=== PATIENT | female | born 1990 | race Caucasian/White ===

== ENCOUNTER 2020-01-31 17:39 | Emergency (ER) | payer SELFPAY ==
[2020-01-31 17:46] VITALS: BP 120/76; PULSE 94; RESP 18; TEMP 36.8; O2SAT 96; BMI 28.3
--- NOTE | 2020-01-31 18:04 | W.ED.SKABFB ---
HPI - Skin/Abscess/Foreign Bdy General: Chief complaint: Skin/Abscess/Foreign Body Stated complaint: rash Time Seen by Provider: 01/31/20 17:49 History of Present Illness: HPI narrative: Rash that itches on arms and legs neck patient says it occurs every year during the summer complaint: rash Onset (ago): day(s) Tetanus up to date: yes Location: generalized Severity: moderate Associated symptoms: Deny chills, fever(s), nausea or vomiting Review of Systems Const: Denies: fever(s), chills or body aches Eyes: Denies: change in vision or blurry vision ENMT: Denies: throat pain or nasal congestion Card: Denies: chest pain or dyspnea on exertion Resp: Denies: dyspnea, productive cough or non-productive cough GI: Denies: abdominal pain, nausea or vomiting Musc: Denies: extremity pain Skin/Breast: Reports: rash, pruritus and erythema Neuro: Denies: headache(s) Psych: Denies: anxiety or depression Ray/Lymph: Denies: easy bruising PFSH ED PFSH: Social History Smoking and tobacco status: never smoked Physical Exam Const: COMMON NORMALS: no acute distress, average body habitus and patient oriented x3 HENMT: COMMON NORMALS: normocephalic HEAD & SCALP: normal to inspection and normocephalic FACE & SINUS: normal facial exam Eye: COMMON NORMALS: conjunctivae normal GENERAL EYE: appearance normal, both eyes and all related structures CONJUNCTIVA: Yes conjunctivae normal Neck/C-Spine: COMMON NORMALS: no JVD Chest: COMMONS NORMALS: normal inspection of the chest Resp: COMMON NORMALS: normal respiratory effort and clear to auscultation bilaterally AUSCULTATION: clear to auscultation bilaterally Cardio: COMMON NORMALS: no JVD, regular rate and regular rhythm RATE: regular rate RHYTHM: regular rhythm GI: COMMON NORMALS: Normal to inspection, nondistended, normoactive bowel sounds present Extremity: COMMON NORMALS: normal to inspection and full ROM Neuro: COMMON NORMALS: patient oriented x3 Skin: NARRATIVE SKIN EXAM: Maculopapular rash extending up her arms from the back of the hands slight on the back of the legs does have little bit on her neck little redness to her face Course Vital Signs: Vital signs: Vital Signs Temperature 98.3 F 01/31/20 17:46 Pulse Rate 94 01/31/20 17:46 Respiratory Rate 18 01/31/20 17:46 Blood Pressure 120/76 01/31/20 17:46 Pulse Oximetry 96 01/31/20 17:46 Discharge Plan Discharge Patient Disposition: Home, Self-Care Clinical Impression: Contact dermatitis Qualifiers: Contact dermatitis type: allergic Contact dermatitis trigger: other trigger Qualified Code(s): L23.89 - Allergic contact dermatitis due to other agents Condition: Stable Prescriptions: New Medrol ([place]) 4 mg tablets,dose pack See Rx Instructions .ROUTE .COMPLEX Qty: 21 RF: 0 hydroxyzine HCl 25 mg tablet 25 mg PO Q8H PRN (Reason: itching) Qty: 10 RF: 0 Discharge Orders: Discharge Order (Routine); Ordered 01/31/20 Ordered By: James Martinez Referrals: Paulette Delgado FNP [Primary Care Provider] - Discharge Diet: Usual diet Discharge Activity: Resume usual activity Patient Instructions: Contact Dermatitis (ED) Activity Restrictions/Additional Instructions: Follow-up with medical provider as directed. Take medications as prescribed. Return to the ER or your medical provider if condition worsens. Please read and understand discharge instructions. If any questions ask please. Follow-up with primary for allergy testing Coding Level of Care Code ED Golf Cart Maker for Elijah Garcia
[2020-01-31] MEDS: methylPREDNISolone (DEPO) 40 mg/mL INJ 1 mL IM (18:22)
[2020-01-31 18:24] VITALS: BP 144/101; PULSE 93; RESP 14; O2SAT 96
== END 2020-01-31 18:25 | disposition home or self-care (01) ==
PROVIDERS: Emergency Provider Nurse Practitioner Family; PCP Registered Nurse
DX: L23.89 Allergic contact dermatitis due to other agents (principal)
CPT/HCPCS: 12345; 96372; 99281; 99283; J1030

== ENCOUNTER 2020-03-18 22:59 | Emergency (ER) | payer SELFPAY ==
[2020-03-18 23:04] VITALS: BP 139/92; PULSE 86; RESP 18; TEMP 37; O2SAT 97; BMI 26.4
--- NOTE | 2020-03-18 23:15 | W.ED.ALLEREA ---
HPI - Allergic Reaction General: Chief complaint: Allergic Reaction Stated complaint: POSSIBLE ALLERGIC REACTION Time Seen by Provider: 03/18/20 23:15 Source: patient Mode of arrival: ambulatory Limitations: no limitations History of Present Illness: HPI narrative: Patient comes in with feeling of malaise, nausea and vomiting, and gastric distress. Patient states that she was eating pork and had an episode of nausea and vomiting with gastric distress. Patient states that she has tested positive for alpha gal which has made her hypersensitive to beef. She reports never having an episode with pork but believes she may have had one tonight. Patient appears mildly unwell. Patient appears in no pain. No obvious hives or oral mucosal swelling is noted at this time. Associated symptoms: Reports nausea and vomiting Review of Systems General: Reports: 10 or more systems reviewed and unremarkable except in HPI and below GI: Reports: nausea, vomiting and diarrhea PFSH ED PFSH: Social History Smoking and tobacco status: never smoked Physical Exam Const: COMMON NORMALS: no acute distress and patient oriented x3 GENERAL APPEARANCE: cooperative HENMT: COMMON NORMALS: normocephalic and Normal external nose present HEAD & SCALP: normal to inspection and normocephalic NOSE: Normal external nose present MOUTH: Normal oral and palatal mucosa present THROAT: posterior oropharynx normal Eye: GENERAL EYE: appearance normal, both eyes and all related structures Neck/C-Spine: COMMON NORMALS: full ROM Lymph: LYMPHATIC: no lymphadenopathy noted Chest: COMMONS NORMALS: normal inspection of the chest Resp: COMMON NORMALS: normal respiratory effort EFFORT & INSPECTION: Yes able to speak in complete sentences Cardio: COMMON NORMALS: regular rate and regular rhythm RATE: regular rate RHYTHM: regular rhythm GI: COMMON NORMALS: non-tender Back/Pelvis: COMMON NORMALS: thoracic and lumbar spine normal to inspection Extremity: COMMON NORMALS: normal to inspection Neuro: COMMON NORMALS: patient oriented x3 and moves all extremities Psych: COMMON NORMALS: mental status grossly normal and cooperative Skin: COMMON NORMALS: no rashes or lesions noted GENERAL SKIN EXAM: no rashes or lesions noted Course Vital Signs: Vital signs: Vital Signs Temperature 98.6 F 03/18/20 23:04 Pulse Rate 70 03/18/20 23:32 Respiratory Rate 16 03/18/20 23:32 Blood Pressure 130/93 03/18/20 23:32 Pulse Oximetry 98 03/18/20 23:32 MDM - Allergic Reaction MDM Narrative: Medical decision making narrative: Medical decision statement. Patient comes in today for complaints of adverse reaction to pork ingestion. Patient has alpha gal syndrome and developed allergens to beef, she usually is able to eat pork without difficulty but tonight she had some pork and had a adverse reaction to it. Patient reported nausea vomiting and diarrhea. Vital signs are normal. No obvious rash or airway compromise is noted. Differential diagnosis includes foodborne illness, allergic reaction, malingering. Patient was given Benadryl and monitored in the ER showing no deterioration of condition. Patient was recommended to continue Benadryl for the next 2 to 3 days and to follow-up as needed. Patient reported understanding agreed to plan. Discharge Plan Discharge Patient Disposition: Home, Self-Care Clinical Impression: Allergic reaction Qualifiers: Encounter type: initial encounter Qualified Code(s): T78.40XA - Allergy, unspecified, initial encounter Condition: Stable Prescriptions: Discontinued methylprednisolone [Medrol ([place])] 4 mg tablets,dose pack See Rx Instructions .ROUTE .COMPLEX Qty: 21 RF: 0 No Action hydroxyzine HCl 25 mg tablet 25 mg PO Q8H PRN (Reason: itching) Qty: 10 RF: 0 Discharge Orders: Discharge Order (Routine); Ordered 03/18/20 Ordered By: Sam Hodges Referrals: Paulette Delgado FNP [Primary Care Provider] - Discharge Diet: Usual diet Discharge Activity: Increase activity as tolerated Activity Restrictions/Additional Instructions: Avoid contact with any red meat, this includes beef, pork, and other hooved animals. Continue with Benadryl 25 mg p.o. every 4-6 hours as needed for symptoms. Drink plenty of water. Follow-up with primary care for further treatment. Coding Level of Care Code ED Field Marketing Team Leader for Cortneyg Fwd Exam Comprehensive
[2020-03-18 23:32] VITALS: BP 130/93; PULSE 70; RESP 16; O2SAT 98
[2020-03-18] MEDS: diphenhydrAMINE 50 mg Capsule PO (23:55)
[2020-03-19 00:42] VITALS: BP 122/74; PULSE 80; RESP 18; TEMP 36.7; O2SAT 100
== END 2020-03-19 02:47 | disposition home or self-care (01) ==
PROVIDERS: Emergency Provider Nurse Practitioner Family; PCP Registered Nurse
DX: T78.40XA Allergy, unspecified, initial encounter (principal)
CPT/HCPCS: 12345; 99283; Q0163

== ENCOUNTER 2020-07-04 13:44 | Emergency (ER) | payer SELFPAY ==
[2020-07-04 13:50] VITALS: BP 121/70; PULSE 88; RESP 18; TEMP 36.8; O2SAT 97; BMI 25.0
--- NOTE | 2020-07-04 14:10 | CT_ITS ---
WS: [id number] CT HEAD TECHNIQUE: Noncontrast CT of the head obtained from the skullbase to the vertex. CLINICAL INFORMATION: chowdary COMPARISON: CT May 29, 2011 DLP: 682.[address] scans at [facility] use at least one of these dose optimization techniques: automat ed exposure control; mA and/or kV adjustment per patient size (includes targeted exams where dose is matched to clinical indication); or iterative reconstruction. FINDINGS: No evidence of intracranial hemorrhage or mass effect. Ventricular system and basal cisterns are neves nt. No extra-axial fluid collections. No evidence of mass or mass effect. Normal lucia-white different iation. Paranasal sinuses and mastoid air cells are well aerated. .Normal visualized soft tissues. CT/CT head wo con* 19383 IMPRESSION: 1. No evidence of intracranial hemorrhage or mass effect. 2. Normal lucia-white differentiation. 3. No acute intracranial findings. Attempted notification Lloyd Catalan MD at 07/04/2020 3:37 PM.
--- NOTE | 2020-07-04 15:09 | ED_ITS ---
HPI - Head Injury General: Chief complaint: Head Injury Stated complaint: r eye pain/ trampoline Time Seen by Provider: 07/04/20 14:39 History of Present Illness: HPI Narrative: Patient is a 29-year-old female who presents to the emergency room due to laceration above right brow. Patient states that she was utilizing a drill putting a trampoline together when it slipped and hit her in the head. Patient states that she had a headache and dizziness after she was struck. This occurred just prior to arrival to the emergency room approximately 3 hours ago. Patient denies any vomiting, loss of consciousness, seizure-like activity, disorientation or any other concerning symptoms. Review of Systems General: Reports: 10 or more systems reviewed and unremarkable except in HPI and below Skin/Breast: Reports: other (Laceration) Neuro: Reports: headache(s); Denies: numbness in extremities, weakness in extremities, sensory changes or lack of coordination PFSH ED PFSH: Social History Smoking and tobacco status: never smoked Physical Exam Narrative: EXAM NARRATIVE: Patient is well-appearing nontoxic sitting comfortably speaking with spouse without difficulty smiling upon examination and history. Patient presents due to head injury and laceration. Laceration is just superior to right brow and superficial in nature. There is no evidence of contamination or debris. Patient is neurologically intact. Patient is moving all 4 extremities without difficulty. Patient does not have any cervical vertebral point tenderness. Patient gait is steady. Patient GCS is 15 and has been since injury. Const: COMMON NORMALS: no acute distress, average body habitus, patient oriented x3 and no limitations EXAM LIMITATIONS: no altered mental status GENERAL APPEARANCE: cooperative, comfortable and well kempt HENMT: COMMON NORMALS: normocephalic, hearing grossly normal bilaterally and Normal nasal mucous membranes and turbinates present HEAD & SCALP: normocephalic and scalp lesion (Laceration noted to superior right brow.) HEAD IMAGES: 1. Superficial 1.5 cm laceration well approximated. There is no underlying hematoma, evidence of bony step-off or deformity, no evidence of basilar skull signs or any other red flag symptoms. FACE & SINUS: normal facial exam NOSE: Normal nasal mucous membranes and turbinates present MOUTH: Normal oral and palatal mucosa present Eye: COMMON NORMALS: Equal, round and reactive pupils present, EOMs intact bilaterally and conjunctivae normal GENERAL EYE: appearance normal, both eyes and all related structures VISUAL ACUITY: Yes acuity normal ALIGNMENT: Yes alignment normal PERIORBITAL: periorbital findings normal EYELID: eyelids normal CONJUNCTIVA: Yes conjunctivae normal PUPIL: Yes Equal, round and reactive pupils present Neck/C-Spine: COMMON NORMALS: full ROM, supple and Thyroid normal GENERAL: Yes normal visual inspection THYROID: Thyroid normal CERVICAL SPINE: Yes cervical ROM normal, No pain with cervical ROM and No step off deformity Chest: COMMONS NORMALS: normal inspection of the chest Resp: COMMON NORMALS: normal respiratory effort EFFORT & INSPECTION: Yes symmetric chest movement Cardio: COMMON NORMALS: regular rate and regular rhythm RATE: regular rate RHYTHM: regular rhythm GI: COMMON NORMALS: Normal to inspection, nondistended, normoactive bowel sounds present INSPECTION: Yes normal to inspection PALPATION: No Tenderness to palpation present (GI) Back/Pelvis: THORACIC SPINE/UPPER BACK: Yes normal to inspection and Yes thoracic ROM normal LUMBAR SPINE/LOWER BACK: Yes normal to inspection and Yes lumbar ROM normal Extremity: COMMON NORMALS: normal to inspection, full ROM and capillary refill normal Neuro: DU[place]AS COMA SCALE: document GCS findings [place] coma scale eye opening: Spontaneous [place] coma scale verbal response: Orientated [place] coma scale motor response: Obey commands [place] coma scale total score: 15 COMMON NORMALS: patient oriented x3 Psych: APPEARANCE: Yes well kempt Skin: TRAUMA: laceration linear (Superior to right brow), superficial and sensation intact; does not involve subcutaneous tissue and does not involve muscle tissue Procedures Laceration Laceration 1: Site: face Side (If applicable): right Size (cm): 1.5 Description: linear Depth: simple, single layer Amount of anesthesia used (mL): 0 (Utilized Dermabond to approximate wound and Steri-Strips.) Pre-repair: wound explored Course Vital Signs: Vital signs: Vital Signs Temperature 98.2 F 07/04/20 13:50 Pulse Rate 88 07/04/20 13:50 Respiratory Rate 18 07/04/20 13:50 Blood Pressure 121/70 07/04/20 13:50 Pulse Oximetry 97 07/04/20 13:50 MDM - Head Injury MDM Narrative: Medical decision making narrative: Patient head CT is negative with no acute intracranial pathology noted. I cleansed patient laceration site with Betadine and saline. Wound was explored in a bloodless field there was no evidence of bony involvement there is no evidence of foreign body. Patient wound approximated well with Steri-Strips and Dermabond. And patient tolerated procedure well. Differential Diagnosis: Differential diagnosis head injury: Likely concussion without loss of consciousness, closed head injury and subdural hematoma Imaging Data^: CT Head: My impression: No acute intracranial pathology noted. Discharge Plan Discharge Prescriptions: No Action hydroxyzine HCl 25 mg tablet 25 mg PO Q8H PRN (Reason: itching) Qty: 10 RF: 0 Coding Level of Care Code ED Undercover Agent for Chg Jose
[2020-07-04 15:31] VITALS: BP 115/75; PULSE 69; RESP 14; O2SAT 98
== END 2020-07-04 15:49 | disposition home or self-care (01) ==
PROVIDERS: Emergency Provider Nurse Practitioner Family; PCP Registered Nurse
DX: S01.111A Laceration without foreign body of right eyelid and periocular area, initial encounter (principal); W22.8XXA Striking against or struck by other objects, initial encounter
CPT/HCPCS: 12011; 12345; 70450; 99281; 99283

== ENCOUNTER 2020-11-28 18:54 | Emergency (ER) | payer SELFPAY ==
[2020-11-28 19:16] VITALS: BP 135/87; PULSE 68; RESP 18; TEMP 36.9; O2SAT 99; BMI 25.7
[2020-11-28 20:28] LABS: Basophils # 0.1 10^3/uL (0.0-0.1); Basophils % 0.3 %; Eosinophils # 0.1 10^3/uL (0.0-0.8); Eosinophils % 0.3 %; Hematocrit 38.9 % (37.0-47.0); Lymphocytes # 1.1 10^3/uL (0.8-4.8); Lymphocytes % 7.7 %; Mean Corpuscular HGB Conc 33.4 g/dL (30.0-36.0); Mean Corpuscular Hemoglobin 29.6 pg (28.0-34.0); Mean Corpuscular Volume 88.6 fL (81-99); Mean Platelet Volume 10.6 fL (7.4-10.4); Monocytes # 0.7 10^3/uL (0.2-0.9); Monocytes % 4.6 %; Neutrophils # 12.71 10^3/uL (1.8-7.7); Neutrophils % 86.9 %; Nucleated Red Blood Cells % 0 %; Platelet Count 253 10^3/cmm (130-400); Red Blood Count 4.39 10^6/uL (4.1-5.3); Red Cell Distribution Width 13.1 % (12.1-15.1); White Blood Count 14.7 10^3/uL (4.0-10.0)
[2020-11-28 20:47] LABS: Alanine Aminotransferase 11 U/L (0-33); Albumin Level 4.7 g/dL (3.5-5.2); Alkaline Phosphatase 88 IU/L (35-105); Anion Gap 12.9 (5-19); Aspartate Amino Transferase 14 U/L (0-32); Blood Urea Nitrogen 8 mg/dL (6-20); Carbon Dioxide 26 mmol/L (22-29); Chloride 101 mmol/L (98-107); Globulin 2.8 g/dL (1.3-4.6); Glucose 105 mg/dL (65-115); Lipase 24 U/L (13-60); Osmolality Calculated 281 mOsm/kg (285-295); Potassium 3.9 mmol/L (3.5-5.1); Sodium 136 mmol/L (136-145); Total Bilirubin 0.3 mg/dL (0.15-1.2); Total Protein 7.5 g/dL (6.6-8.7)
[2020-11-28 22:52] LABS: HCG Qualitative Urine. Negative (Negative)
== END 2020-11-29 00:23 | disposition left against medical advice (07) ==
LOC: ER 19:02
PROVIDERS: Emergency Medicine; Emergency Provider Family Medicine; PCP Registered Nurse
DX: Z53.21 Procedure and treatment not carried out due to patient leaving prior to being seen by health care provider (principal)
CPT/HCPCS: 36415; 80053; 81025; 83690; 85025

== ENCOUNTER 2021-03-20 07:48 | Emergency (ER) | payer MEDICAID, SELFPAY ==
[2021-03-20 07:59] VITALS: BP 115/77; PULSE 69; RESP 18; TEMP 37; O2SAT 100; BMI 22.4
[2021-03-20 08:07] VITALS: RESP 15
--- NOTE | 2021-03-20 08:42 | ED_ITS ---
HPI - URI/Sore Throat General: Chief Complaint: General Medical Stated Complaint: Left Lymph Node Swelling Time Seen by Provider: 03/20/21 07:50 Source: patient Mode of arrival: ambulatory Limitations: no limitations History of Present Illness: HPI Narrative: Patient is a 30-year-old female who presents to ED today with complaints of sinus pressure, nasal congestion/rhinorrhea, sore throat that she attributes to postnasal drainage, loss of smell (reports no loss of taste), and swelling to the left side of her neck. Symptoms of been present over the past 1 to 2 days. She attributed symptoms to allergies however became concerned with the neck swelling. She is eating and drinking normally. No trouble breathing or swallowing. No fevers. She is unvaccinated for COVID. MD elicited complaint: cough, sore throat, nasal congestion, sinus pain and other (L neck swelling) Onset (ago): day(s) Consistency: constant Severity: mild Description of mucous: clear and watery Able to tolerate fluids by mouth: Yes Exacerbating factors: swallowing Relieving factors: nothing Associated symptoms: Reports nasal congestion and sinus pain; Deny abdominal pain, chills, chest pain, diarrhea, ear or mastoid pain, fever(s), headache(s), nausea or vomiting Treatments prior to arrival: none Review of Systems Const: Denies: fever(s), chills, body aches, change in appetite, change in weight, fatigue or malaise Eyes: Denies: change in vision or blurry vision ENMT: Reports: throat pain, odynophagia, nasal discharge, nasal congestion, post nasal drip and sinus pain; Denies: uvular edema, enlarged tonsils, hoarseness, swelling of lips/tongue, oral sores, ear or mastoid pain, ear discharge or change in hearing Card: Denies: chest pain Resp: Reports: non-productive cough; Denies: dyspnea or chest congestion GI: Denies: abdominal pain, nausea, vomiting or diarrhea Musc: Denies: neck pain, back pain, extremity pain or joint pain Skin/Breast: Denies: rash Neuro: Denies: headache(s), numbness in extremities, weakness in extremities or sensory changes PFSH ED PFSH: Social History Smoking and tobacco status: never smoked Female Reproductive History: Date of last menstrual period: 10/31/20 Physical Exam Const: COMMON NORMALS: no acute distress, average body habitus, patient oriented x3, no limitations, healthy appearing, alert and well nourished GENERAL APPEARANCE: cooperative ORIENTATION/CONSCIOUSNESS: Yes awake, Yes oriented to person, Yes oriented to place and Yes oriented to time HENMT: COMMON NORMALS: normocephalic, atraumatic, hearing grossly normal bilaterally, external ears normal, EAC's normal, TM's normal bilaterally, Normal external nose present, Normal nasal mucous membranes and turbinates present, oropharynx normal and gingiva normal HEAD & SCALP: normal to inspection, normocephalic and atraumatic FACE & SINUS: sinus tenderness frontal, ethmoid and maxillary NOSE: Normal external nose present, Normal nares present and Normal nasal mucous membranes and turbinates present EXTERNAL EAR: Yes external ears normal and Yes mastoids normal EXTERNAL AUDITORY CANAL: EAC's normal TYMPANIC MEMBRANE: TM's normal bilaterally MOUTH: Normal oral and palatal mucosa present, lip normal and tongue normal THROAT: posterior oropharynx normal, tonsils normal and uvula midline; no uvular edema Eye: COMMON NORMALS: Equal, round and reactive pupils present, EOMs intact bilaterally and conjunctivae normal GENERAL EYE: appearance normal, both eyes and all related structures CONJUNCTIVA: Yes conjunctivae normal PUPIL: Yes Equal, round and reactive pupils present Neck/C-Spine: COMMON NORMALS: full ROM, no meningeal signs and Thyroid normal GENERAL: Yes lymphadenopathy (left ) Lymphadenopathy location: submandibular and anterior cervical THYROID: Thyroid normal Resp: COMMON NORMALS: normal respiratory effort and clear to auscultation bilaterally AUSCULTATION: clear to auscultation bilaterally Cardio: COMMON NORMALS: regular rate and regular rhythm RATE: regular rate RHYTHM: regular rhythm Extremity: COMMON NORMALS: normal to inspection Neuro: COMMON NORMALS: patient oriented x3 SENSORIUM/ORIENTATION: Yes alert, Yes oriented to person, Yes oriented to place and Yes oriented to time MENINGEAL SIGNS: Yes no meningeal signs Skin: COMMON NORMALS: no rashes or lesions noted GENERAL SKIN EXAM: no rashes or lesions noted TRAUMA: no lacerations or abrasions Course Vital Signs: Vital signs: Vital Signs Temperature 98.6 F 03/20/21 07:59 Pulse Rate 69 03/20/21 07:59 Respiratory Rate 15 03/20/21 08:07 Blood Pressure 115/77 03/20/21 07:59 Pulse Oximetry 100 03/20/21 07:59 MDM - URI/Sore Throat MDM Narrative: Medical decision making narrative: Will place on abx for unilateral lymphadenopathy. Rapid antigen COVID negative. Will do Cephalexin suspension secondary to her alpha gal allergy. Return to ED precautions given. Lab Data: Labs: Lab Results 03/20/21 Range/Units 08:51 SARS-CoV-2 Ag (Rap id) Negative (Negative) Discharge Plan Discharge Patient Disposition: Home Clinical Impression: Lymphadenopathy of left cervical region Sinusitis Qualifiers: Sinusitis location: ethmoidal Chronicity: acute Recurrence: non-recurrent Qualified Code(s): J01.20 - Acute ethmoidal sinusitis, unspecified Condition: Stable Prescriptions: New cephalexin 250 mg/5 mL suspension for reconstitution 500 mg PO TID 7 Days Qty: 210 RF: 0 No Action ibuprofen 800 mg tablet 800 mg PO Q8H PRN (Reason: pain) Qty: 10 RF: 0 Discharge Orders: Discharge ED (Routine); Ordered 03/20/21 Ordered By: Carleen Chang Referrals: Paulette Delgado FNP [Primary Care Provider] - Activity Restrictions/Additional Instructions: As we discussed please follow-up with your primary care provider in 3 to 4 days if symptoms are not improving. You need to return to the emergency department immediately for any trouble swallowing, difficulty breathing, inability to control your saliva/drooling, or any other concerns you may have. Coding Level of Care Code ED Mold Maker Plastic Molds for Elijah Fwd Exam Comprehensive
[2021-03-20 09:48] LABS: SARS Covid-2 Antigen Negative (Negative)
[2021-03-20 12:22] VITALS: BP 154/93; PULSE 75; RESP 18; TEMP 36.9; O2SAT 100
== END 2021-03-20 12:23 | disposition home or self-care (01) ==
PROVIDERS: Emergency Provider Physician Assistant; PCP Registered Nurse
DX: J01.20 Acute ethmoidal sinusitis, unspecified (principal); R59.1 Generalized enlarged lymph nodes; Z20.822 Contact with and (suspected) exposure to COVID-19
CPT/HCPCS: 87426; 99281

== ENCOUNTER 2021-07-06 19:07 | Emergency (ER) | payer MEDICAID, SELFPAY ==
[2021-07-06 19:27] VITALS: BP 157/93; PULSE 75; RESP 18; TEMP 37.2; O2SAT 100; BMI 24.1
--- NOTE | 2021-07-06 19:33 | XRR_ITS ---
PROCEDURE INFORMATION: Exam: XR Left Foot Exam date and time: 07/06/2021 7:33 PM Age: 30 years old Clinical indication: Injury or trauma; Fall; Blunt trauma; Foot; Left TECHNIQUE: Imaging protocol: XR Left foot. Views: 3 or more views. COMPARISON: No relevant prior studies available. FINDINGS: Bones/joints: No fracture or dislocation is seen. A tiny dorsal calcaneal spur is present. Soft tissues: Normal. XR/XR foot LT min 3V* [id number] IMPRESSION: No fracture or dislocation. Radiation Dose CTDIVOL = (mGy): DLP = (mGy-cm)
[2021-07-06 20:00] VITALS: PULSE 87
--- NOTE | 2021-07-06 21:03 | ED_ITS ---
HPI - Extremity Problem General: Chief complaint: Extremity Injury, Lower Stated complaint: L Foot Injury\ SOB Time Seen by Provider: 07/06/21 20:30 History of Present Illness: HPI Narrative: 30-year-old female comes in today with complaints of injury to the left foot. Patient was carrying her son when she tripped and fell injuring her left foot. Patient appears well. Patient appears no acute distress. Patient reports pain to the foot. Review of Systems General: Reports: 10 or more systems reviewed and unremarkable except in HPI and below Musc: Reports: other (Left foot injury) PFSH ED PFSH: Social History Smoking and tobacco status: never smoked Female Reproductive History: Date of last menstrual period: 06/14/21 Physical Exam Const: COMMON NORMALS: no acute distress and patient oriented x3 GENERAL APPEARANCE: cooperative HENMT: COMMON NORMALS: normocephalic and Normal external nose present HEAD & SCALP: normal to inspection and normocephalic NOSE: Normal external nose present Eye: GENERAL EYE: appearance normal, both eyes and all related structures Neck/C-Spine: COMMON NORMALS: full ROM Chest: COMMONS NORMALS: normal inspection of the chest Resp: COMMON NORMALS: normal respiratory effort EFFORT & INSPECTION: Yes able to speak in complete sentences Cardio: COMMON NORMALS: regular rate and regular rhythm RATE: regular rate RHYTHM: regular rhythm GI: COMMON NORMALS: non-tender Extremity: NARRATIVE EXTREMITY EXAM: Tenderness to the lateral left foot. No obvious fractures noted. Still swelling. Pulses intact. Neuro: COMMON NORMALS: patient oriented x3 and moves all extremities Psych: COMMON NORMALS: mental status grossly normal and cooperative Skin: COMMON NORMALS: no rashes or lesions noted GENERAL SKIN EXAM: no rashes or lesions noted Course Vital Signs: Vital signs: Vital Signs Temperature 98.9 F 07/06/21 19:27 Pulse Rate 75 07/06/21 19:27 Respiratory Rate 18 07/06/21 19:27 Blood Pressure 157/93 07/06/21 19:27 Pulse Oximetry 100 07/06/21 19:27 MDM - Extremity (Nontraumatic) MDM Narrative: Medical decision making narrative: Patient came in for evaluation of injury to the left foot. On exam there is no obvious injury or significant swelling or ecchymosis. Vital signs are normal. Differential diagnosis includes fracture, sprain, contusion. X-ray was negative for any fra cture. Reviewed exam with patient recommended treatment with ice and elevation and Gaurav wrap. Patient was concerned about medications due to her alpha gal allergy. Review of the history noted patient been prescribed 800 mg ibuprofen. I renewed this prescription for her. Patient otherwise was given nonpharmacological ideals for treatment. Patient reported understanding. Discharge Plan Discharge Patient Disposition: Home Clinical Impression: Foot sprain Qualifiers: Encounter type: initial encounter Laterality: left Qualified Code(s): S93.602A - Unspecified sprain of left foot, initial encounter Condition: Stable Prescriptions: Continued ibuprofen 800 mg tablet 800 mg PO Q8H PRN (Reason: pain) Qty: 10 RF: 0 Discharge Orders: Discharge ED (Routine); Ordered 07/06/21 Ordered By: Sam Hodges Referrals: Paulette Delgado FNP [Primary Care Provider] - Discharge Diet: Usual diet Discharge Activity: Increase activity as tolerated Patient Instructions: Foot Sprain (ED), Opioid Safety Activity Restrictions/Additional Instructions: Use crutches until he can bear weight comfortably on foot. Use Gaurav wrap to help with swelling and comfort. Use ice for further pain relief. Use ibuprofen for severe pain. Follow-up with primary care for further instruction. Return to the ER for new concerns. Coding Level of Care Code ED Peer Financial Counselor for Elijah Garcia
[2021-07-06 21:30] VITALS: BP 147/91; PULSE 87; RESP 18; O2SAT 97
== END 2021-07-06 21:12 | disposition home or self-care (01) ==
PROVIDERS: Emergency Provider Nurse Practitioner Family; PCP Registered Nurse
DX: S93.602A Unspecified sprain of left foot, initial encounter (principal); W01.0XXA Fall on same level from slipping, tripping and stumbling without subsequent striking against object, initial encounter; Y93.F9 Activity, other caregiving
CPT/HCPCS: 73630; 99283; E0114

== ENCOUNTER 2022-01-04 09:39 | Emergency (ER) | payer MEDICAID, SELFPAY ==
[2022-01-04 09:52] VITALS: BP 112/76; PULSE 90; RESP 18; TEMP 36.6; O2SAT 100; BMI 21.6
--- NOTE | 2022-01-04 10:52 | ED_ITS ---
Documented by User: ADELSO Ross 01/04/22 13:38 HPI - Female Genitourinary General: Chief complaint: Urogenital-Female Stated complaint: abdominal pain/difficulty urinating/back pain Time Seen by Provider: 01/04/22 09:56 Source: patient Mode of arrival: wheelchair Limitations: no limitations History of Present Illness: Patient is a 31-year-old female presents to ED tod ay with a complaint of left-sided flank pain as well as dysuria, frequency, and urgency. Patient states approximately 3 years ago she had a pyelonephritis infection that felt similar. She states yesterday but she began noticing some dysuria later that evening began developing some flank pains and feeling nauseous. He has not had any episodes of emesis. Bowel movements have been normal. No fevers. She has not noticed any hematuria. MD elicited complaint: dysuria, flank pain and other (urinary frequency, urgency) Onset (ago): day(s) (yesterday) Location of symptoms: flank Severity: moderate Quality of pain: dull and aching Consistency: constant Vaginal discharge: none Vaginal bleeding: none Urinary symptoms: Dysuria, Flank Pain and Frequency Relieving factors: none Associated symptoms: Reports nausea; Deny abdominal pain, headache(s) or vaginal discharge Treatment prior to arrival: none Sexual activity: Yes Patient : No Date of Last Menstrual Period: 06/14/21 Review of Systems Const: Denies: fever(s), chills, body aches, fatigue or malaise Card: Denies: chest pain Resp: Denies: dyspnea GI: Reports: nausea; Denies: abdominal pain, vomiting, diarrhea or change in bowel habits : Reports: flank pain, dysuria, urinary frequency and urinary urgency; Denies: oliguria, urinary incontinence, hematuria, vaginal bleeding, vaginal discharge or pelvic pain Musc: Reports: back pain (L flank); Denies: neck pain, extremity pain, joint pain or joint swelling Skin/Breast: Denies: rash Neuro: Denies: headache(s), numbness in extremities, weakness in extremities, sensory changes or dizziness PFS ED PFSH: Social History Smoking and tobacco status: never smoked Female Reproductive History: Date of last menstrual period: 06/14/21 Physical Exam Const: COMMON NORMALS: no limitations, healthy appearing, alert and well nourished GENERAL APPEARANCE: cooperative and in distress (appears slightly uncomfortable secondary to pain) ORIENTATION/CONSCIOUSNESS: Yes awake, Yes oriented to person, Yes oriented to place and Yes oriented to time HENMT: COMMON NORMALS: normocephalic and atraumatic HEAD & SCALP: normocephalic and atraumatic Chest: COMMONS NORMALS: normal inspection of the chest and normal palpation of entire chest wall Resp: COMMON NORMALS: normal respiratory effort and clear to auscultation bilaterally AUSCULTATION: clear to auscultation bilaterally Cardio: COMMON NORMALS: regular rate and regular rhythm RATE: regular rate RHYTHM: regular rhythm GI: COMMON NORMALS: Normal to inspection, nondistended, normoactive bowel sounds present, Soft to palpation, non-tender, No hepatosplenomegaly present and no masses INSPECTION: Yes normal to inspection AUSCULTATION: Yes normoactive bowel sounds PALPATION: Yes Soft to palpation and Yes No hepatosplenomegaly present : BLADDER/KIDNEY EXAM: Yes CVA tenderness on the left Back/Pelvis: COMMON NORMALS: thoracic and lumbar spine normal to inspection a nd no thoracic nor lumbar tenderness GENERAL BACK: Yes CVA tenderness Extremity: COMMON NORMALS: normal to inspection Neuro: RICH COMA SCALE: document GCS findings [place] coma scale eye opening: Spontaneous Rich coma scale verbal response: Orientated [place] coma scale motor response: Obey commands Rich coma scale total score: 15 COMMON NORMALS: moves all extremities, no focal motor deficits and no sensory deficits noted SENSORIUM/ORIENTATION: Yes alert, Yes oriented to person, Yes oriented to place and Yes oriented to time Skin: COMMON NORMALS: no rashes or lesions noted GENERAL SKIN EXAM: no rashes or lesions noted Course Vital Signs: Vital signs: Vital Signs Temperature 97.9 F 01/04/22 12:46 Pulse Rate 90 01/04/22 12:46 Respiratory Rate 18 01/04/22 12:46 Blood Pressure 112/76 01/04/22 12:46 Pulse Oximetry 100 01/04/22 12:46 [facility] - Female Medical Decision Making Patient's history and physical exam is consistent with a left-sided pyelonephritis. She is not tachycardic or febrile. White count is 15.5. UA showing 3+ blood, 1+ leuks, 25-40 WBCs and 1+ bacteria. We will culture this. Patient has not had any vomiting and is able to hold down oral antibiotics at home. She is not clinically ill or toxic appearing. US of her kidneys are normal. She was given IV Rocephin and will be placed on Ciprofloxacin. We will also write for nausea meds and a small amount of pain medications. Strict return to ED precautions verbally discussed with patient. Lab Data : 01/04/22 10:50 01/04/22 10:50 Radiology Impressions Renal Ultrasound 01/04/22 11:48 IMPRESSION: Normal renal ultrasound. Laboratory Results WBC 15.5 10^3/uL (4.0-10.0) H 01/04/22 10:50 RBC 4.21 10^6/uL (4.1-5.3) 01/04/22 10:50 Hgb 12.1 g/dL (11.5-15.3) 01/04/22 10:50 Hct 37.0 % (37.0-47.0) 01/04/22 10:50 MCV 87.9 fl (81-99) 01/04/22 10:50 MCH 28.7 pg (28.0-34.0) 01/04/22 10:50 MCHC 32.7 g/dL (30.0-36.0) 01/04/22 10:50 RDW 14.3 % (12.1-15.1) 01/04/22 10:50 Plt Count 312 10^3/cmm (130-400) 01/04/22 10:50 MPV 10.9 fL (7.4-10.4) H 01/04/22 10:50 Neut % (Auto) 85.9 % 01/04/22 10:50 Lymph % (Auto) 6.7 % 01/04/22 10:50 Leon % (Auto) 6.0 % 01/04/22 10:50 Eos % (Auto) 0.5 % 01/04/22 10:50 Baso % (Auto) 0.5 % 01/04/22 10:50 Neut # (Auto) 13.27 10^3/uL (1.8-7.7) H 01/04/22 10:50 Lymph # (Auto) 1.0 10^3/uL (0.8-4.8) 01/04/22 10:50 Leon # (Auto) 0.9 10^3/uL (0.2-0.9) 01/04/22 10:50 Eos # (Auto) 0.1 10^3/uL (0.0-0.8) 01/04/22 10:50 Baso # (Auto) 0.1 10^3/uL (0.0-0.1) 01/04/22 10:50 Nucleated RBC % (auto) 0 % 01/04/22 10:50 Nucleated RBCs # 0.0 /100WBC 01/04/22 10:50 Sodium 136 mmol/L (136-145) 01/04/22 10:50 Potassium 4.2 mmol/L (3.5-5.1) 01/04/22 10:50 Chloride 100 mmol/L (98-107) 01/04/22 10:50 Carbon Dioxide 26 mmol/L (22-29) 01/04/22 10:50 Anion Gap 14.2 (5-19) 01/04/22 10:50 BUN 10 mg/dL (6-20) 01/04/22 10:50 Creatinine 0.8 mg/dL (0.5-0.9) 01/04/22 10:50 GFR Calculation 82.6 mL/min (90-130) L 01/04/22 10:50 Glucose 75 mg/dL (65-115) 01/04/22 10:50 Calculated Osmolality 280 mOsm/kg (285-295) L 01/04/22 10:50 Calcium 9.8 mg/dL (8.5-10.5) 01/04/22 10:50 Total Bilirubin 0.2 mg/dL (0.15-1.2) 01/04/22 10:50 AST 15 U/L (0-32) 01/04/22 10:50 ALT 12 U/L (0-33) 01/04/22 10:50 Alkaline Phosphatase 120 IU/L (35-105) H 01/04/22 10:50 Total Protein 7.5 g/dL (6.6-8.7) 01/04/22 10:50 Albumin 4.9 g/dL (3.5-5.2) 01/04/22 10:50 Globulin 2.6 g/dL (1.3-4.6) 01/04/22 10:50 Lipase 28 U/L (13-60) 01/04/22 10:50 HCG, Qual Negative (Negative) 01/04/22 10:50 Urine Color Straw (Yellow) 01/04/22 10:50 Urine Appearance Sl hazy (CLEAR) 01/04/22 10:50 Urine pH 6.5 (5-7) 01/04/22 10:50 Ur Specific [place] 1.010 (1.005-1.030) 01/04/22 10:50 Urine Protein Neg (Negative) 01/04/22 10:50 Urine Glucose (UA) Norm (Normal) 01/04/22 10:50 Urine Ketones Negative (Negative) 01/04/22 10:50 Urine Blood 3+ (Negative) H 01/04/22 10:50 Urine Nitrate Negative (Negative) 01/04/22 10:50 Urine Bilirubin Neg (Negative) 01/04/22 10:50 Urine Urobilinogen Norm mg/dL (Negative) 01/04/22 10:50 Ur Leukocyte Esterase 1+ (Negative) H 01/04/22 10:50 Urine RBC 10-15 /hpf (0-2) H 01/04/22 10:50 Urine WBC 25-40 /hpf (0-5) H 01/04/22 10:50 Ur Squamous Epith Cells 0-4 /hpf (0-5) H 01/04/22 10:50 Amorphous Sediment Not Reportable 01/04/22 10:50 Urine Bacteria 1+ /hpf (NONE) H 01/04/22 10:50 Discharge Plan Discharge Patient Disposition: Home Clinical Impression: Pyelonephritis of left kidney Condition: Stable Prescriptions: New hydrocodone-acetaminophen 5-325 mg tablet 1 tab PO Q6H PRN (Reason: pain) Qty: 7 0RF Cipro 500 mg tablet 500 mg PO Q12H Qty: 14 0RF ondansetron 4 mg tablet,disintegrating 4 mg PO Q8H PRN (Reason: nausea and vomiting) Qty: 14 0RF No Action ibuprofen 800 mg tablet 800 mg PO Q8H PRN (Reason: pain) Qty: 10 0RF Discharge Orders: Discharge ED (Routine); Ordered 01/04/22 Ordered By: Carleen Chang Referrals: Paulette Delgado FNP [Primary Care Provider] - Patient Instructions: Pyelonephritis Coding Level of Care Code ED Commissioning Specialist for Chg Fwd Exam Comprehensive Documented by User: Jluis Culver DO 01/04/22 14:57 HPI - Female Genitourinary General: Chief complaint: Urogenital-Female Stated complaint: abdominal pain/difficulty urinating/back pain Time Seen by Provider: 01/04/22 09:56 PFSH ED PFSH: Social History Smoking and tobacco status: never smoked Physical Exam Neuro: RICH COMA SCALE: document GCS findings Rich coma scale total score: 15 Course Vital Signs: Vital signs: Vital Signs Temperature 97.9 F 01/04/22 12:46 Pulse Rate 90 01/04/22 12:46 Respiratory Rate 18 01/04/22 12:46 Blood Pressure 112/76 01/04/22 12:46 Pulse Oximetry 100 01/04/22 12:46 MDM - Female Medical Decision Making Patient's history and physical exam is consistent with a left-sided pyelonephritis. She is not tachycardic or febrile. White count is 15.5. UA showing 3+ blood, 1+ leuks, 25-40 WBCs and 1+ bacteria. We will culture this. Patient has not had any vomiting and is able to hold down oral antibiotics at home. She is not clinically ill or toxic appearing. US of her kidneys are normal. She was given IV Rocephin and will be placed on Ciprofloxacin. We will also write for nausea meds and a small amount of pain medications. Strict return to ED precautions verbally discussed with patient. Chart reviewed and patient discussed with midlevel. Agree with assessment and plan. Lab Data : 01/04/22 10:50 01/04/22 10:50 Radiology Impressions Renal Ultrasound 01/04/22 11:48
[2022-01-04 11:07] LABS: Basophils # 0.1 10^3/uL (0.0-0.1); Basophils % 0.5 %; Eosinophils # 0.1 10^3/uL (0.0-0.8); Eosinophils % 0.5 %; Hemoglobin 12.1 g/dL (11.5-15.3); Lymphocytes % 6.7 %; Mean Corpuscular HGB Conc 32.7 g/dL (30.0-36.0); Mean Corpuscular Hemoglobin 28.7 pg (28.0-34.0); Mean Corpuscular Volume 87.9 fl (81-99); Mean Platelet Volume 10.9 fL (7.4-10.4); Monocytes # 0.9 10^3/uL (0.2-0.9); Neutrophils # 13.27 10^3/uL (1.8-7.7); Neutrophils % 85.9 %; Nucleated Red Blood Cells % 0 %; Platelet Count 312 10^3/cmm (130-400); Red Blood Count 4.21 10^6/uL (4.1-5.3); Red Cell Distribution Width 14.3 % (12.1-15.1); White Blood Count 15.5 10^3/uL (4.0-10.0)
[2022-01-04 11:28] LABS: Alanine Aminotransferase 12 U/L (0-33); Albumin Level 4.9 g/dL (3.5-5.2); Alkaline Phosphatase 120 IU/L (35-105); Anion Gap 14.2 (5-19); Aspartate Amino Transferase 15 U/L (0-32); Blood Urea Nitrogen 10 mg/dL (6-20); Calcium 9.8 mg/dL (8.5-10.5); Carbon Dioxide 26 mmol/L (22-29); Chloride 100 mmol/L (98-107); Globulin 2.6 g/dL (1.3-4.6); Glomerular Filtration Rate 82.6 mL/min (90-130); Glucose 75 mg/dL (65-115); HCG, Serum Qual Negative (Negative); Lipase 28 U/L (13-60); Osmolality Calculated 280 mOsm/kg (285-295); Potassium 4.2 mmol/L (3.5-5.1); Sodium 136 mmol/L (136-145); Total Bilirubin 0.2 mg/dL (0.15-1.2); Total Protein 7.5 g/dL (6.6-8.7)
[2022-01-04 11:36] LABS: Urine Color Straw (Yellow)
[2022-01-04 11:41] LABS: Add Urine Microscopic? YES; Bilirubin Urine Neg (Negative); Blood Urine 3+ (Negative); Glucose Urine UA Norm (Normal); Ketones Urine Negative (Negative); Leukocyte Esterase Urine 1+ (Negative); Nitrate Urine Negative (Negative); Protein Urine Neg (Negative); Urine Appearance SL Hazy (CLEAR); Urobilinogen Urine Norm (Negative); pH Urine 6.5 (5-7)
[2022-01-04 11:43] LABS: Add Urine Culture? Yes; Bacteria Urine 1+ /hpf; Squamous Epithelial Cell Urine 0-4 /hpf (0-5); WBC Urine 25-40 /hpf (0-5)
--- NOTE | 2022-01-04 11:48 | US_ITS ---
WS: [id number] ULTRASOUND RENAL TECHNIQUE: Ultrasound examination of both kidneys. CLINICAL INFORMATION: L flank pain; pyelo COMPARISON: Ultrasound FINDINGS: RIGHT: Tiny nonobstructing RIGHT renal parenchymal calculi. Right kidney is normal in size and appearance. Echogenicity: Normal. Cortical thickness: 1.1 cm; Normal. Hydronephrosis: None. Perinephric fluid: None. Right kidney measures: 10.0 cm x 5.7 cm x 4.7 cm. LEFT: Left kidney is normal in size and appearance. Echogenicity: Normal. Cortical thickness: 1.7 cm; Normal. Hydronephrosis: None. Perinephric fluid: None. Left kidney measures: 9.3 cm x 4.3 cm x 4.9 cm. Normal visualized aorta. Normal bladder. US/US renal BI* [id number] IMPRESSION: Normal renal ultrasound.
[2022-01-04] MEDS: cefTRIAXone 1,000 MG in sodium chloride 0.9% (plus) 50 ML 100 MG IV (12:42)
[2022-01-04 12:46] VITALS: BP 112/76; PULSE 90; RESP 18; TEMP 36.6; O2SAT 100
[2022-01-04] MEDS: morphine 4 mg/mL SDV 1 mL IVP (13:16)
[2022-01-04] MEDS: ondansetron 2 mg/ML SDV 2 mL 4 MG IVP (13:17)
== END 2022-01-04 14:09 | disposition home or self-care (01) ==
PROVIDERS: Emergency Provider Physician Assistant; PCP Registered Nurse
DX: N12 Tubulo-interstitial nephritis, not specified as acute or chronic (principal); R11.0 Nausea
CPT/HCPCS: 76770; 80053; 81001; 83690; 84703; 85025; 87077; 87086; 87186; 96365; 96375; 99284; J0696; J2270; J2405

== ENCOUNTER 2022-08-30 12:19 | Emergency (ER) | payer MEDICAID, SELFPAY ==
--- NOTE | 2022-08-30 12:26 | ECG_ITS ---
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 Measurements Intervals [place] Rate: 86 P: 70 VT: 128 QRS: 79 QRSD: 76 T: 53 QT: 334 QTc: 402 Interpretive Statements SINUS RHYTHM No previous ECG available for comparison Electronically Signed On 08-30-2022 21:11:43 BEREAVEMENT COORDINATOR by Mari Levine M.D. [email or web address]
[2022-08-30 12:45] VITALS: BP 121/82; PULSE 92; RESP 16; TEMP 37.1; O2SAT 98; BMI 20.7
[2022-08-30 13:50] VITALS: BP 116/80; PULSE 86; RESP 16; O2SAT 98
--- NOTE | 2022-08-30 18:38 | XRR_ITS ---
PROCEDURE INFORMATION: Exam: XR Chest Exam date and time: 08/30/2022 6:43 PM Age: 31 years old Clinical indication: Angina; Additional info: Cp TECHNIQUE: Imaging protocol: Radiologic exam of the chest. Views: 1 view. COMPARISON: ES surgery / GI images 06/23/2019 1:00 PM FINDINGS: Lungs: Unremarkable. No consolidation. Pleural spaces: Unremarkable. No pleural effusion. No pneumothorax. Heart/Mediastinum: Unremarkable. No cardiomegaly. Bones/joints: Unremarkable. XR/XR chest 1V portable [id number] IMPRESSION: No acute findings.
--- NOTE | 2022-08-30 18:49 | ED_ITS ---
HPI - Chest Pain General: Chief Complaint: Chest Pain Stated Complaint: Chest Pain Time Seen by Provider: 08/30/22 18:38 History of Present Illness: Patient is a 31-year-old female comes to the ED with chest pain. Patient says her symptoms started at rest approximately 3 days ago. She describes the chest pain as an episodic sharp stabbing pain all throughout her chest. She rates that pain a 5 out of 10. She also endorses having pins and needle type pain all throughout her chest as well that she says is constant she rates that a 7 out of 10. Denies any shortness of breath. Patient also developed a hives type rash within the past couple hours and it is on her chest. She has a history of acute anxiety. Denies any worsening or improving factors. Denies any nausea/vomiting, abdominal pain, bladder or bowel symptoms. Associated symptoms: Deny abdominal pain, dyspnea, fever(s), nausea, palpitations or vomiting Review of Systems Const: Denies: fever(s), chills or fatigue Eyes: Denies: change in vision or eye discomfort ENMT: Denies: throat pain, odynophagia, nasal discharge or nasal congestion Card: Reports: chest pain; Denies: palpitations, edema, swelling of feet/ankles, dyspnea on exertion or orthopnea Resp: Denies: dyspnea, productive cough or non-productive cough GI: Denies: abdominal pain, nausea, vomiting, diarrhea, constipation or hematochezia : Denies: flank pain, dysuria or hematuria Musc: Denies: neck pain, back pain or extremity swelling Skin/Breast: Reports: rash; Denies: new lesions Neuro: Denies: headache(s), numbness in extremities or weakness in extremities PFSH ED PFSH: Medical History Anxiety Surgical History H/O tubal ligation Social History Smoking and tobacco status: never smoked Female Reproductive History: Date of last menstrual period: 06/14/21 Physical Exam Const: COMMON NORMALS: no acute distress, patient oriented x3, healthy appearing and alert GENERAL APPEARANCE: cooperative and comfortable HENMT: COMMON NORMALS: normocephalic HEAD & SCALP: normocephalic MOUTH: Normal oral and palatal mucosa present THROAT: posterior oropharynx normal and uvula midline Neck/C-Spine: COMMON NORMALS: supple GENERAL: Yes normal visual inspection Resp: COMMON NORMALS: normal respiratory effort, No retractions, No use of accessory muscles and clear to auscultation bilaterally AUSCULTATION: clear to auscultation bilaterally Cardio: COMMON NORMALS: regular rate, regular rhythm, S1 normal heart sound present, S2 normal heart sound present, No gallops present (Cardio), No clicks present (Cardio), No murmurs present (Cardio) and Peripheral pulses 2+ thro ughout RATE: regular rate RHYTHM: regular rhythm HEART SOUNDS: S1 normal heart sound present and S2 normal heart sound present PERIPHERAL PULSES: Peripheral pulses 2+ throughout GI: COMMON NORMALS: Normal to inspection, nondistended, normoactive bowel sounds present, Soft to palpation, non-tender and no masses PALPATION: Yes Soft to palpation : COMMON NORMALS: Yes no CVA tenderness BLADDER/KIDNEY EXAM: Yes no CVA tenderness Back/Pelvis: COMMON NORMALS: no CVA tenderness Extremity: COMMON NORMALS: normal to inspection Neuro: COMMON NORMALS: patient oriented x3 SENSORIUM/ORIENTATION: Yes alert GAIT: Yes Normal gait present Skin: NARRATIVE SKIN EXAM: Patient has hives type rash on chest. GENERAL SKIN EXAM: dry skin Course Vital Signs: Vital signs: Vital Signs Temperature 98.8 F 08/30/22 12:45 Pulse Rate 77 08/30/22 20:53 Respiratory Rate 16 08/30/22 20:53 Blood Pressure 118/90 08/30/22 20:53 Pulse Oximetry 100 08/30/22 20:53 MDM - Chest Pain Medical Decision Making Patient is a 31-year-old female comes to the ED with chest pain. Patient has a history of multiple allergies and alpha gal. Patient says her symptoms started at rest approximately 3 days ago. She describes the chest pain as an episodic sharp stabbing pain all throughout her chest. She rates that pain a 5 out of 10. She also endorses having pins and needle type pain all throughout her chest as well that she says is constant she rates that a 7 out of 10. Denies any shortness of breath. Patient also developed a hives type rash within the past couple hours and it is on her chest. She has a history of acute anxiety. Vital stable. Patient appears nontoxic and in no acute distress or pain. She does have urticarial rash on chest. The rest of exam is benign. CBC and CMP are unremarkable. Chest x-ray shows no acute findings. Troponins negative. EKG shows normal sinus rhythm with no ST segment elevation or depression seen and a rate of 73 bpm. Patient was given a dose of aspirin, Ativan and Solu-Medrol and Benadryl to help with rash. She was stable for discharge home and diagnosed with atypical chest pain and rash. She was stable for discharge home and sent home with a prescription for some prednisone and an EpiPen. Return to ED precautions given. Patient understood and agreed with plan. Lab Data I reviewed the patient's lab results. 08/30/22 19:09 08/30/22 19:09 Radiology Impressions Chest X-Ray 08/30/22 18:38 IMPRESSION: No acute findings. Laboratory Results WBC 4.5 10^3/uL (4.0-10.0) 08/30/22 19:09 RBC 4.23 10^6/uL (4.1-5.3) 08/30/22 19:09 Hgb 11.9 g/dL (11.5-15.3) 08/30/22 19:09 Hct 35.9 % (37.0-47.0) L 08/30/22 19:09 MCV 84.9 fl (81-99) 08/30/22 19:09 MCH 28.1 pg (28.0-34.0) 08/30/22 19:09 MCHC 33.1 g/dL (30.0-36.0) 08/30/22 19:09 RDW 13.7 % (12.1-15.1) 08/30/22 19:09 Plt Count 236 10^3/cmm (130-400) 08/30/22 19:09 MPV 10.7 fL (7.4-10.4) H 08/30/22 19:09 Neut % (Auto) 55.9 % 08/30/22 19:09 Lymph % (Auto) 30.0 % 08/30/22 19:09 [place] % (Auto) 12.8 % 08/30/22 19:09 Eos % (Auto) 0.7 % 08/30/22 19:09 Baso % (Auto) 0.4 % 08/30/22 19:09 Neut # (Auto) 2.49 10^3/uL (1.8-7.7) 08/30/22 19:09 Lymph # (Auto) 1.3 10^3/uL (0.8-4.8) 08/30/22 19:09 [place] # (Auto) 0.6 10^3/uL (0.2-0.9) 08/30/22 19:09 Eos # (Auto) 0.0 10^3/uL (0.0-0.8) 08/30/22 19:09 Baso # (Auto) 0.0 10^3/uL (0.0-0.1) 08/30/22 19:09 Nucleated RBC % (auto) 0 % 08/30/22 19:09 Nucleated RBCs # 0.0 /100WBC 08/30/22 19:09 Sodium 134 mmol/L (136-145) L 08/30/22 19:09 Potassium 3.5 mmol/L (3.5-5.1) 08/30/22 19:09 Chloride 100 mmol/L (98-107) 08/30/22 19:09 Carbon Dioxide 23 mmol/L (22-29) 08/30/22 19:09 Anion Gap 14.5 (5-19) 08/30/22 19:09 BUN 6 mg/dL (6-20) 08/30/22 19:09 Creatinine 0.8 mg/dL (0.5-0.9) 08/30/22 19:09 GFR Calculation 82.6 mL/min (90-130) L 08/30/22 19:09 Glucose 85 mg/dL (65-115) 08/30/22 19:09 Calculated Osmolality 275 mOsm/kg (285-295) L 08/30/22 19:09 Calcium 9.3 mg/dL (8.5-10.5) 08/30/22 19:09 Total Bilirubin 0.2 mg/dL (0.15-1.2) 08/30/22 19:09 AST 19 U/L (0-32) 08/30/22 19:09 ALT 10 U/L (0-33) 08/30/22 19:09 Alkaline Phosphatase 102 U/L (35-105) 08/30/22 19:09 Troponin T Gen 5 ng/L 6 ng/L (0-10) 08/30/22 19:09 Total Protein 7.6 g/dL (6.6-8.7) 08/30/22 19:09 Albumin 4.4 g/dL (3.5-5.2) 08/30/22 19:09 Globulin 3.2 g/dL (1.3-4.6) 08/30/22 19:09 HCG, Qual Negative (Negative) 08/30/22 19:09 EKG Data EKG 1: I personally reviewed and interpreted this EKG as follows: EKG interpretation date: 08/30/22 Interpretation: Normal sinus rhythm, 73 bpm, no ST segment elevation or depression seen. Discharge Plan Discharge Patient Disposition: Home Clinical Impression: Atypical chest pain, Rash Condition: Stable Prescriptions: New prednisone 20 mg tablet 20 mg PO BID 3 Days Qty: 6 0RF EpiPen 0.3 mg/0.3 mL auto-injector 0.3 mg IM Q20M PRN (Reason: anaphylaxis) Qty: 2 0RF Rx Instructions: for 3 doses No Action ibuprofen 800 mg tablet 800 mg PO Q8H PRN (Reason: pain) Qty: 10 0RF hydrocodone-acetaminophen 5-325 mg tablet 1 tab PO Q6H PRN (Reason: pain) Qty: 7 0RF Cipro 500 mg tablet 500 mg PO Q12H Qty: 14 0RF ondansetron 4 mg tablet,disintegrating 4 mg PO Q8H PRN (Reason: nausea and vomiting) Qty: 14 0RF Discharge Orders: Discharge ED (Routine); Ordered 08/30/22 Ordered By: Korey Clarke Referrals: Paulette Delgado FNP [Primary Care Provider] - Discharge Diet: Regular Discharge Activity: Increase activity as tolerated Patient Instructions: Chest Pain (ED), Urticaria (ED) Activity Restrictions/Additional Instructions: Follow-up with medical provider as directed in the next 7-10 days for reevaluation. Take medications as prescribed. Return to the ER or your medical provider if condition worsens. Please read and understand discharge instructions. Thank you for choosing [facility] for your healthcare needs today. Please realize this is an emergency room and that we are providing you with a medical screening exam and this may not be complete and all inclusive of all the testing and or work up that you may need to determine your ailment or severity of your illness. It is very important that you follow up as instructed or that you return to the Emergency Department should you have concerns or if your condition changes or worsens in any way. Coding Level of Care Code ED Organic Lab Worker for Elijah Fwd Exam Comprehensive
[2022-08-30] MEDS: aspirin 81 mg Chew Tablet 324 MG PO (19:03)
--- NOTE | 2022-08-30 19:08 | ECG_ITS ---
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 Measurements Intervals [place] Rate: 73 P: 14 SD: 139 QRS: 71 QRSD: 87 T: 58 QT: 366 QTc: 403 Interpretive Statements SINUS RHYTHM Compared to ECG 08/30/2022 12:34:45 No significant changes Electronically Signed On 08-30-2022 21:16:17 HISTOTECHNICIAN by Mari Levine M.D. [email or web address]
[2022-08-30 19:12] VITALS: BP 118/76; PULSE 76; RESP 16; O2SAT 100
[2022-08-30 19:17] LABS: Basophils % 0.4 %; Eosinophils % 0.7 %; Hematocrit 35.9 % (37.0-47.0); Hemoglobin 11.9 g/dL (11.5-15.3); Lymphocytes # 1.3 10^3/uL (0.8-4.8); Mean Corpuscular HGB Conc 33.1 g/dL (30.0-36.0); Mean Corpuscular Hemoglobin 28.1 pg (28.0-34.0); Mean Corpuscular Volume 84.9 fl (81-99); Mean Platelet Volume 10.7 fL (7.4-10.4); Monocytes # 0.6 10^3/uL (0.2-0.9); Monocytes % 12.8 %; Neutrophils # 2.49 10^3/uL (1.8-7.7); Neutrophils % 55.9 %; Nucleated Red Blood Cells % 0 %; Platelet Count 236 10^3/cmm (130-400); Red Blood Count 4.23 10^6/uL (4.1-5.3); Red Cell Distribution Width 13.7 % (12.1-15.1); White Blood Count 4.5 10^3/uL (4.0-10.0)
[2022-08-30 19:38] LABS: Troponin T (5th) Once 6 ng/L (0-10)
[2022-08-30 19:41] LABS: Alanine Aminotransferase 10 U/L (0-33); Albumin Level 4.4 g/dL (3.5-5.2); Alkaline Phosphatase 102 U/L (35-105); Anion Gap 14.5 (5-19); Aspartate Amino Transferase 19 U/L (0-32); Blood Urea Nitrogen 6 mg/dL (6-20); Calcium 9.3 mg/dL (8.5-10.5); Carbon Dioxide 23 mmol/L (22-29); Chloride 100 mmol/L (98-107); Globulin 3.2 g/dL (1.3-4.6); Glomerular Filtration Rate 82.6 mL/min (90-130); Glucose 85 mg/dL (65-115); Osmolality Calculated 275 mOsm/kg (285-295); Potassium 3.5 mmol/L (3.5-5.1); Sodium 134 mmol/L (136-145); Total Bilirubin 0.2 mg/dL (0.15-1.2); Total Protein 7.6 g/dL (6.6-8.7)
[2022-08-30 19:52] LABS: HCG, Serum Qual Negative (Negative)
[2022-08-30 20:00] VITALS: PULSE 72; RESP 16; O2SAT 100
[2022-08-30] MEDS: LORazepam 1 mg Tablet PO (20:12)
[2022-08-30 20:53] VITALS: BP 118/90; PULSE 77; RESP 16; O2SAT 100
[2022-08-30] MEDS: diphenhydrAMINE 50 mg/mL SDV 1mL 25 MG IVP (20:56)
== END 2022-08-30 21:50 | disposition home or self-care (01) ==
PROVIDERS: Emergency Provider Physician Assistant; PCP Registered Nurse
DX: R07.89 Other chest pain (principal); R21 Rash and other nonspecific skin eruption
CPT/HCPCS: 71045; 80053; 84484; 84703; 85025; 93005; 96374; 96375; 99285; J1200; J2930

== ENCOUNTER → 2022-12-21 08:50 | Outpatient (BNVA) | payer MEDICAID, SELFPAY | PROVIDERS: PCP Registered Nurse; Visit Provider Obstetrics & Gynecology | DX: C53.9 Malignant neoplasm of cervix uteri, unspecified (principal) | CPT/HCPCS: 87624 ==

== ENCOUNTER → 2023-01-08 13:59 | Outpatient (BNVA) | payer MEDICAID, SELFPAY | PROVIDERS: PCP Registered Nurse; Visit Provider Obstetrics & Gynecology | DX: N93.9 Abnormal uterine and vaginal bleeding, unspecified (principal); N83.02 Follicular cyst of left ovary; N83.01 Follicular cyst of right ovary; R93.89 Abnormal findings on diagnostic imaging of other specified body structures | CPT/HCPCS: 76830 ==

== ENCOUNTER 2023-03-24 15:33 | Emergency (ER) | payer MEDICAID, SELFPAY ==
[2023-03-24 15:40] VITALS: BP 121/77; PULSE 78; RESP 16; TEMP 37.2; O2SAT 96; BMI 20.7
[2023-03-24 16:24] LABS: Basophils # 0.1 10^3/uL (0.0-0.1); Basophils % 0.6 %; Eosinophils # 0.2 10^3/uL (0.0-0.8); Eosinophils % 1.8 %; Hematocrit 26.5 % (37.0-47.0); Lymphocytes # 1.3 10^3/uL (0.8-4.8); Lymphocytes % 12.2 %; Mean Corpuscular HGB Conc 30.2 g/dL (30.0-36.0); Mean Corpuscular Hemoglobin 21.8 pg (28.0-34.0); Mean Corpuscular Volume 72.2 fl (81-99); Mean Platelet Volume 10.3 fL (7.4-10.4); Monocytes # 0.5 10^3/uL (0.2-0.9); Monocytes % 4.3 %; Neutrophils # 8.78 10^3/uL (1.8-7.7); Neutrophils % 80.9 %; Nucleated Red Blood Cells % 0 %; Platelet Count 330 10^3/cmm (130-400); Red Blood Count 3.67 10^6/uL (4.1-5.3); Red Cell Distribution Width 17.4 % (12.1-15.1); White Blood Count 10.9 10^3/uL (4.0-10.0)
[2023-03-24 16:57] LABS: Alanine Aminotransferase 9 U/L (0-33); Albumin Level 4.4 g/dL (3.5-5.2); Alkaline Phosphatase 82 U/L (35-105); Anion Gap 14.8 (5-19); Aspartate Amino Transferase 17 U/L (0-32); Blood Urea Nitrogen 7 mg/dL (6-20); Carbon Dioxide 23 mmol/L (22-29); Chloride 105 mmol/L (98-107); Globulin 2.7 g/dL (1.3-4.6); Glomerular Filtration Rate 82.1 mL/min (90-130); Glucose 94 mg/dL (65-115); Osmolality Calculated 286 mOsm/kg (285-295); Potassium 3.8 mmol/L (3.5-5.1); Sodium 139 mmol/L (136-145); Total Bilirubin 0.2 mg/dL (0.15-1.2); Total Protein 7.1 g/dL (6.6-8.7)
[2023-03-24 17:25] LABS: Add Urine Culture? No; Add Urine Microscopic? YES; Bacteria Urine TRACE /hpf; Bilirubin Urine Neg (Negative); Blood Urine 3+ (Negative); Glucose Urine UA Norm (Normal); Ketones Urine Negative (Negative); Leukocyte Esterase Urine Negative (Negative); Mucus Urine 1+ /hpf; Nitrate Urine Negative (Negative); Protein Urine Trace (Negative); Specific Gravity, Urine 1.025 (1.005-1.030); Squamous Epithelial Cell Urine 0-4 /hpf (0-5); Urine Appearance Clear (CLEAR); Urine Color Yellow (Yellow); Urobilinogen Urine Norm (Negative); WBC Urine 0-4 /hpf (0-5); pH Urine 5 (5-7)
--- NOTE | 2023-03-27 09:35 | DCPLANNER ---
Case angelica called patient due to no primary care physician - patient states that she sees Dr. Ori Meza at the [facility] in [place].
== END 2023-03-24 18:03 | disposition left against medical advice (07) ==
PROVIDERS: Physician Assistant; Emergency Provider Family Medicine
DX: Z53.21 Procedure and treatment not carried out due to patient leaving prior to being seen by health care provider (principal)
CPT/HCPCS: 36415; 80053; 81001; 84702; 85025; 99283